=== PATIENT | female | born 1955 | race Caucasian/White ===

== ENCOUNTER 2021-09-02 12:02 | Emergency (ER) | payer MEDICARE, BC ==
--- NOTE | 2021-09-02 14:03 | EDM.PDOC ---
ED HPI GENERAL MEDICAL PROBLEM - General Chief Complaint: General Stated Complaint: SOB Time Seen by Provider: 09/02/21 13:47 Source of Information: Reports: Patient, RN Notes Reviewed History Limitations: Reports: No Limitations - History of Present Illness INITIAL COMMENTS - FREE TEXT/NARRATIVE: 66-year-old female presents emergency department today concerns about increasing shortness of breath body aches and fever, she was recently diagnosed COVID-19 on 08-29 started having symptoms on 08-27 Generalized Pain Score (Numeric/FACES): 4 - Related Data Allergies Allergy/AdvReac Type Severity Reaction Status Date / Time nitrofurantoin Allergy Hives Verified 09/02/21 13:06 [From Macrodantin] Sulfa (Sulfonamide Allergy Hives Verified 09/02/21 13:06 Antibiotics) Home Meds: Home Meds Levothyroxine [Synthroid] 100 mcg PO DAILY 09/02/21 [History] Ondansetron [Zofran ODT] 4 mg PO Q6H PRN #10 tab.dis 09/02/21 [Rx] atorvaSTATin [Lipitor] 10 mg PO DAILY 09/02/21 [History] buPROPion [buPROPion XL] 150 mg PO DAILY 09/02/21 [History] Past Medical History Cardiovascular History: Reports: High Cholesterol Psychiatric History: Reports: Depression Endocrine/Metabolic History: Reports: Hyperthyroidism Social & Family History - Tobacco Use Tobacco Use Status *Q: Never Tobacco User - Recreational Drug Use Recreational Drug Use: No ED ROS GENERAL - Review of Systems Review Of Systems: See Below Constitutional: Reports: Fever, Chills, Weakness, Fatigue Respiratory: Reports: Shortness of Breath, Cough Cardiovascular: Reports: Dyspnea on Exertion GI/Abdominal: Reports: Nausea ED EXAM, GENERAL - Physical Exam Exam: See Below Exam Limited By: No Limitations General Appearance: Alert, WD/WN, No Apparent Distress Respiratory/Chest: No Respiratory Distress, Lungs Clear, Normal Breath Sounds, No Accessory Muscle Use, Chest Non-Tender Cardiovascular: Regular Rate, Rhythm, No Murmur Course - Vital Signs Last Recorded V/S: Last Vital Signs Temp 100.1 F 09/02/21 12:58 Pulse 91 09/02/21 13:36 Resp 18 09/02/21 12:58 BP 129/76 09/02/21 13:36 Pulse Ox 96 09/02/21 13:36 Departure - Departure Time of Disposition: 14:02 Disposition: Home, Self-Care 01 Condition: Fair Clinical Impression: COVID-19 - Discharge Information Instructions: COVID-19: Keep Your Baby Healthy and Safe - [facility] (10/31/2020) Referrals: Princess Gutierrez, [employer] [Primary Care Provider] - Additional Instructions: Use Zofran as needed for nausea vomiting symptoms, the outpatient surgery center will contact you for an appointment time for your treatment with the monoclonal antibody call return to the emergency department worsening of symptoms Sepsis Event Note (ED) - Evaluation Sepsis Screening Result: No Definite Risk - Focused Exam Vital Signs: Vital Signs Temp Pulse Resp BP Pulse Ox 09/02/21 13:36 91 129/76 96 09/02/21 13:18 92 112/70 92 L 09/02/21 12:58 100.1 F 92 18 135/66 96 09/02/21 12:23 100.1 F 92 18 135/66 96 - Assessment/Plan Plan: Assessment Acuity = acute Site and laterality = viral syndrome Etiology = COVID-19 Manifestations = none Location of injury = Home Lab values = none Plan She is a candidate for monoclonal antibody therapy therefore an order has been placed, Zofran 4 mg ODT 1 tab p.o. 3 times daily as needed total #10 provided for nausea and vomiting symptoms This note was dictated using [employer] voice recognition software please call with any questions on syntax or grammar.
== END 2021-09-02 14:22 | disposition home or self-care (01) ==
LOC: JP.ED 12:02
DX: U07.1 COVID-19 (principal); E78.00 Pure hypercholesterolemia, unspecified; E05.90 Thyrotoxicosis, unspecified without thyrotoxic crisis or storm; Z88.1 Allergy status to other antibiotic agents; Z88.2 Allergy status to sulfonamides; Z79.899 Other long term (current) drug therapy
CPT/HCPCS: 99284

== ENCOUNTER 2024-04-08 10:27 | Emergency (ER) | payer MEDICARE, BC ==
[2024-04-08] MEDS: fentaNYL 50 MCG/ML SDV IM ONE (11:31)
[2024-04-08] MEDS: Ondansetron 4 MG/2 ML SDV IM ONE (11:31)
[2024-04-08] MEDS: Methocarbamol 500 MG Tab PO ONE (11:31)
[2024-04-08] MEDS ORDERED: Propofol 200 MG/20 ML SDV ONE (12:58)
== END 2024-04-08 13:55 | disposition home or self-care (01) ==
LOC: JP.ED 10:27
DX: T84.020A Dislocation of internal right hip prosthesis, initial encounter (principal); E78.00 Pure hypercholesterolemia, unspecified; E05.90 Thyrotoxicosis, unspecified without thyrotoxic crisis or storm; Z88.2 Allergy status to sulfonamides; Z88.8 Allergy status to other drugs, medicaments and biological substances; Z90.710 Acquired absence of both cervix and uterus; Z79.890 Hormone replacement therapy; Z79.899 Other long term (current) drug therapy; X50.1XXA Overexertion from prolonged static or awkward postures, initial encounter; Y93.89 Activity, other specified
CPT/HCPCS: 73501; 96372; 99283; A9270; J2405; J2704; J3010

== ENCOUNTER 2024-06-26 21:34 | Emergency (ER) | payer MEDICARE, BC ==
[2024-06-26] MEDS ORDERED: Sodium Chloride 0.9% 10 ML Syringe FLUSH PRN (22:06)
[2024-06-26] MEDS: HYDROmorphone 1 MG/ML Syringe IVPUSH ONE (22:10)
[2024-06-26] MEDS ORDERED: Propofol 200 MG/20 ML SDV ONE (23:08)
[2024-06-26] MEDS: Ondansetron 4 MG/2 ML SDV IVPUSH ONE (23:40)
[2024-06-27] MEDS: LORazepam 2 MG/ML SDV IVPUSH ONE (00:14)
== END 2024-06-27 00:18 | disposition home or self-care (01) ==
LOC: JP.ED 21:34
DX: S73.004A Unspecified dislocation of right hip, initial encounter (principal); E78.00 Pure hypercholesterolemia, unspecified; E03.9 Hypothyroidism, unspecified; Z88.8 Allergy status to other drugs, medicaments and biological substances; Z88.2 Allergy status to sulfonamides; Z79.890 Hormone replacement therapy; Z79.899 Other long term (current) drug therapy; Z90.49 Acquired absence of other specified parts of digestive tract; X58.XXXA Exposure to other specified factors, initial encounter
CPT/HCPCS: 27265; 73501; 96374; 96375; 99283; J1170; J2060; J2405; J2704

== ENCOUNTER 2024-07-29 10:36 | Inpatient (IN) | payer MEDICARE, BC ==
[~2024-07-29 10:36] MED LIST: Midazolam 1 MG/ML 2 ML SDV ONE; Propofol 200 MG/20 ML SDV ONE; fentaNYL 100 MCG/2 ML SDV ONE
[2024-07-29 11:03] LABS: HEMATOCRIT 42.4 % (34.3-46.0); HEMOGLOBIN 14.4 g/dL (11.2-15.5); MEAN CORPUSCULAR HEMOGLOBIN 30.4 pg (31.6-35.5); MEAN CORPUSCULAR VOLUME 89.6 fL (81.4-99.0); RED BLOOD CELL COUNT 4.73 M/uL (3.77-5.24); WHITE BLOOD CELL COUNT,WBC 7.4 K/uL (3.2-11.0)
[2024-07-29 11:25] LABS: A/G RATIO 1.1 (1.2-2.2); ALANINE AMINOTRANSFERASE,ALT 23 U/L (12-78); ALBUMIN 4.1 g/dL (3.4-5.0); ALKALINE PHOSPHATASE 84 U/L (46-116); ANION GAP 9.2 mmol/L (5.0-14.0); ASPARTATE AMNIOTRANSFERASE,AST 18 U/L (15-37); BILIRUBIN TOTAL 0.4 mg/dL (0.2-1.0); BLOOD UREA NITROGEN,BUN 18 mg/dL (7-18); CALCIUM 9.9 mg/dL (8.5-10.1); CARBON DIOXIDE,CO2 31 mmol/L (21-32); CHLORIDE,CL 105 mmol/L (100-108); CREATININE 1.2 mg/dL (0.6-1.0); EST CRCL DRUG DOSING (CG) 36.47 mL/min; ESTIMATED GFR 50 mL/min (>60); GLUCOSE RANDOM 91 mg/dL (74-106); POTASSIUM,K 4.6 mmol/L (3.6-5.2); PROTEIN TOTAL,TP 7.9 g/dL (6.4-8.2); SODIUM,NA 145 mmol/L (140-148)
[2024-07-29] MEDS: Lactated Ringers 1,000 ML IV SCH (11:47)
[2024-07-29] MEDS: Nozin Nasal Sanitizer NASBOTH SCH ×2 (11:56→22:07)
[2024-07-29] MEDS: ceFAZolin 2 GM in Premix Bag 1 BAG IV ONE (13:25)
[2024-07-29] MEDS ORDERED: SODIUM FLUORIDE SCH (13:30)
[2024-07-29] MEDS ORDERED: ASCORBIC ACID PO SCH (13:30)
[2024-07-29] MEDS ORDERED: ceFAZolin 2 GM in Sodium Chloride 0.9% 50 ML IV SCH (13:30)
[2024-07-29] MEDS ORDERED: POTASSIUM SCH (13:30)
[2024-07-29] MEDS ORDERED: Rocuronium 50 MG/5 ML Vial ONE ×2 (13:36→15:25)
[2024-07-29] MEDS ORDERED: Propofol 200 MG/20 ML SDV ONE (13:36)
[2024-07-29] MEDS ORDERED: Neostigmine Methylsulfate 10 MG/10 ML MDV ONE (13:36)
[2024-07-29] MEDS ORDERED: Dexamethasone 4 MG/ML SDV ONE (13:36)
[2024-07-29] MEDS ORDERED: Succinylcholine 200 MG/10 ML MDV ONE (13:36)
[2024-07-29] MEDS ORDERED: Ondansetron 4 MG/2 ML SDV ONE (13:36)
[2024-07-29] MEDS ORDERED: Glycopyrrolate 0.2 MG/ML 5 ML MDV ONE (13:36)
[2024-07-29] MEDS ORDERED: fentaNYL 250 MCG/5 ML SDV ONE (13:39)
[2024-07-29] MEDS: Bupivacaine 0.5% 50 ML MDV ONE (14:15)
[2024-07-29] MEDS: Ondansetron 4 MG/2 ML SDV IVPUSH PRN (16:56)
[2024-07-29] MEDS: Ketorolac 15 MG/ML SDV IVPUSH PRN (17:02)
[2024-07-29] MEDS: tiZANidine 2 MG Tab PO PRN (17:15)
[2024-07-29] MEDS: oxyCODONE 5 MG Tab PO PRN (17:43)
[2024-07-29] MEDS: Acetaminophen 325 MG Tab PO SCH (17:44)
[2024-07-29] MEDS ORDERED: Non-Formulary Medication 1 Each (Melatonin [Melatonin] 10 MG Tablet) PO SCH (21:00)
[2024-07-29] MEDS: Melatonin 3 MG Tab PO SCH (22:06)
[2024-07-29] MEDS: ceFAZolin 2 GM in Premix Bag 1 BAG IV SCH (22:09)
[2024-07-30 05:30] LABS: HEMATOCRIT 31.4 % (34.3-46.0); HEMOGLOBIN 10.6 g/dL (11.2-15.5); MEAN CORPUSCULAR HEMOGLOBIN 30.4 pg (31.6-35.5); MEAN CORPUSCULAR HGB CONC 33.8 g/dL (31.6-35.5); RED BLOOD CELL COUNT 3.49 M/uL (3.77-5.24); WHITE BLOOD CELL COUNT,WBC 10.6 K/uL (3.2-11.0)
[2024-07-30] MEDS: oxyCODONE 5 MG Tab PO PRN (05:34)
[2024-07-30] MEDS: Levothyroxine 112 MCG Tab PO SCH (07:49)
[2024-07-30] MEDS: Aspirin 325 MG Tab.EC PO SCH (08:24)
[2024-07-30] MEDS: Rosuvastatin 10 MG Tab PO SCH (08:24)
[2024-07-30] MEDS: Vitamin B Complex Tab PO SCH (08:24)
[2024-07-30] MEDS: buPROPion 150 MG Tab.ER PO SCH (08:25)
[2024-07-30] MEDS ORDERED: VITAMIN B COMPLEX PO SCH (09:00)
[2024-07-30] MEDS ORDERED: Non-Formulary Medication 1 Each (Rosuvastatin [Crestor] 20 MG Tablet) PO SCH (09:00)
[2024-07-30 10:20] LABS: ANION GAP 6.8 mmol/L (5.0-14.0); BLOOD UREA NITROGEN,BUN 21 mg/dL (7-18); CARBON DIOXIDE,CO2 26 mmol/L (21-32); CHLORIDE,CL 108 mmol/L (100-108); CREATININE 1.2 mg/dL (0.6-1.0); ESTIMATED GFR 50 mL/min (>60); GLUCOSE RANDOM 144 mg/dL (74-106); POTASSIUM,K 4.2 mmol/L (3.6-5.2); SODIUM,NA 141 mmol/L (140-148); TSH ULTRASENSITIVE 0.155 uIU/mL (0.358-3.740)
[2024-07-30 10:26] LABS: TROPONIN I HIGH SENSITIVITY < 4.0 pg/mL (<=60.3)
[2024-07-30] MEDS: Sodium Chloride 0.9% 1,000 ML IV SCH (11:02)
[2024-07-30] MEDS: traMADol 50 MG Tab PO PRN (11:03)
[2024-07-31 05:28] LABS: CALCIUM 8.1 mg/dL (8.5-10.1); EST CRCL DRUG DOSING (CG) 41.76 mL/min; HEMATOCRIT 30.4 % (34.3-46.0); HEMOGLOBIN 10.5 g/dL (11.2-15.5); MAGNESIUM 1.7 mg/dL (1.8-2.4); MEAN CORPUSCULAR HEMOGLOBIN 31.5 pg (31.6-35.5); MEAN CORPUSCULAR HGB CONC 34.5 g/dL (31.6-35.5); MEAN CORPUSCULAR VOLUME 91.3 fL (81.4-99.0); POTASSIUM,K 3.9 mmol/L (3.6-5.2); RED BLOOD CELL COUNT 3.33 M/uL (3.77-5.24); WHITE BLOOD CELL COUNT,WBC 8.5 K/uL (3.2-11.0)
[2024-07-31 05:30] LABS: ANION GAP 11.9 mmol/L (5.0-14.0)
[2024-07-31] MEDS: Magnesium Oxide 400 MG Tab PO SCH (09:14)
[2024-07-31] MEDS: Magnesium Sulfate/Water Premix 2 GM in Premix Bag 1 BAG IV SCH (09:15)
[2024-07-31] MEDS: Docusate Sodium 100 MG Cap PO PRN (17:03)
[2024-08-01] MEDS: Magnesium Sulfate/Water Premix 2 GM in Premix Bag 1 BAG IV SCH (08:59)
== END 2024-08-01 13:20 | disposition home or self-care (01) | DRG 468 ==
LOC: JP.SDS 10:36 → JP.MS 13:21 → JP.ICU 07-30 09:25 → JP.SDS 07-30 09:29
PROVIDERS: ADMIT Specialist; ATTEND Specialist
PROC: 0SP90JZ Removal of Synthetic Substitute from Right Hip Joint, Open Approach (ICD-10-PCS; 2024-07-29)
PROC: 0SR90JZ Replacement of Right Hip Joint with Synthetic Substitute, Open Approach (ICD-10-PCS; principal; 2024-07-29 11:45)
DX: T84.020A Dislocation of internal right hip prosthesis, initial encounter (principal); I95.81 Postprocedural hypotension; E03.9 Hypothyroidism, unspecified; Y83.1 Surgical operation with implant of artificial internal device as the cause of abnormal reaction of the patient, or of later complication, without mention of misadventure at the time of the procedure
CPT/HCPCS: 01215-QZ; 36415; 36430; 72170; 72170-26; 80048; 80053; 83735; 84443; 84484; 85018; 85027; 86850; 86900; 86901; 86920; 86922; 87070; 87075; 87205; 93005; 93010; 97110-GP; 97116-GP; 97162-GP; 97530-GP; 99231; 99232; A9270-GY; C1713; C1776; J0330; J0665; J0690; J1100; J1596; J1885; J2250; J2405; J2704; J2710; J3010; J3475; J3490; J7030; J7120; P9016